=== PATIENT | female | born 1960 | race Caucasian/White ===

== ENCOUNTER 2019-05-15 23:15 | Emergency (ER) | payer BC ==
[2019-05-15] MEDS ORDERED: KETOROLAC 60 MG/2 ML VIAL IM STA (23:54)
[2019-05-15] MEDS ORDERED: ORPHENADRINE 30 MG/ML 2 ML VIAL IM STA (23:54)
[2019-05-16] MEDS ORDERED: ACET/COD 300 MG/30 MG STARTER PACK 6 TAB BTL PO STA (01:16)
--- NOTE | 2019-05-16 01:18 | ED ---
Lower Extremity Injury HPI - General Chief Complaint: Extremity Injury, Lower Stated Complaint: Rt Knee Injury Time Seen by Provider: 05/15/19 23:45 Source: patient, RN notes reviewed, old records reviewed Mode of arrival: wheelchair Limitations: no limitations - History of Present Illness Initial Comments: Patient is a 58 year old female with R knee pain and locking. She reports that she has had R knee locking sensation for many years and can get it to fully extend aftermanipulation. At this time patient does not see ortho. Patient has had her knee locked since getting out of a kayak this evening. She deines peripheral paresthesia. She reports a shooting pain from knee to hip. - Related Data Home Medications Medication Instructions Recorded Confirmed Baclofen [Lioresal] 10 mg PO DAILY 05/15/19 05/15/19 Cholecalciferol [Vitamin D3 (25 1,000 unit PO DAILY 05/15/19 05/15/19 Mcg = 1000 Iu)] Diclofenac Sodium [Voltaren] 75 mg PO BID 05/15/19 05/15/19 Fluticasone Nasal [place] [Flonase 1 spray EA NOSTRIL DAILY 05/15/19 05/15/19 Nasal [place]] Pregabalin [Lyrica] 150 mg PO BID 05/15/19 05/15/19 metFORMIN HCL [Glucophage] 500 mg PO BID 05/15/19 05/15/19 Allergies Allergy/AdvReac Type Severity Reaction Status Date / Time doxycycline AdvReac skin Verified 05/15/19 23:36 peeling/ light sensitivity Review of Systems ROS Statement: Those systems with pertinent positive or pertinent negative responses have been documented in the HPI. ROS Other: All systems not noted in ROS Statement are negative. Past Medical History Past Medical History: Diabetes Mellitus, Osteoarthritis (OA) Additional Past Medical History / Comment(s): fibromyalgia, History of Any Multi-Drug Resistant Organisms: None Reported Additional Past Surgical History / Comment(s): L4,L5 fusion, left knee meniscus repair, bilat ductial excision to breasts. Past Psychological History: No Psychological Hx Reported Smoking Status: Former smoker Past Alcohol Use History: Occasional Past Drug Use History: None Reported General Exam - General Exam Comments Initial Comments: 58 year old female, no distress. Limitations: no limitations General appearance: alert, in no apparent distress Head exam: Present: atraumatic, normocephalic, normal inspection Eye exam: Present: normal appearance, PERRL, EOMI. Absent: scleral icterus, conjunctival injection, periorbital swelling ENT exam: Present: normal exam, mucous membranes moist Neck exam: Present: normal inspection. Absent: tenderness, meningismus, lymphadenopathy Respiratory exam: Present: normal lung sounds bilaterally. Absent: respiratory distress, wheezes, rales, rhonchi, stridor Cardiovascular Exam: Present: regular rate, normal rhythm, normal heart sounds. Absent: systolic murmur, diastolic murmur, rubs, gallop, clicks Right Knee exam: Present: tenderness, swelling (over medial meniscus. ). Absent: normal inspection Lower Leg exam: Present: normal inspection, full ROM Ankle exam: Present: normal inspection, full ROM Foot/Toe exam: Present: normal inspection Neurovascular tendon exam: Present: no vascular compromise Neurological exam: Present: alert, oriented X3, CN II-XII intact Psychiatric exam: Present: normal affect, normal mood Skin exam: Present: warm, dry, intact, normal color. Absent: rash Course Vital Signs 05/15/19 05/16/19 05/16/19 23:22 00:24 01:44 Temperature 98.3 F 97.6 F Pulse Rate 71 68 76 Respiratory 18 18 16 Rate Blood Pressure 134/81 122/55 138/86 O2 Sat by Pulse 96 96 100 Oximetry Medical Decision Making - Medical Decision Making Patient is a 58 year old female with R knee locking sensation after getting out of kayak. She is neurovacularly intact. Patient cannot fully extend the knee. She is able to extend besides 20 degrees. Patient likely has mensicus tear and related to locking. After attempting to manipulate hte knee, patient is still unable to fully extend. Patient advised to follow up with ortho. Patient placed in knee immobilizer. Disposition Clinical Impression: Locking of right knee Disposition: HOME SELF-CARE Condition: Good Instructions (If sedation given, give patient instructions): Meniscus Tear (ED) Additional Instructions: Patient has a follow-up with transportation maintenance specialist. Ambulate with crutches and wear knee immobilizer. Return to emergency department if any alarming signs or symptoms occur. Is patient prescribed a controlled substance at d/c from ED?: No Referrals: Javier Patel DO [Primary Care Provider] - 1-2 days Emil Arevalo PAC [PHYSICIAN RETURN TO FACTORY CLERK] - 1-2 days Time of Disposition: 01:17
[2019-05-16 01:46] VITALS: BP 138/86; PULSE 76; RESP 16; TEMP 97.6
--- NOTE | 2019-05-16 07:38 | XR ---
Right knee HISTORY: Pain, unable to extend knee 3 views of the right knee The knee is flexed. No evident joint effusion. Bone mineralization is maintained. No fracture or disl ocation is evident. IMPRESSION: Knee is flexed, no other acute abnormality is evident
== END 2019-05-16 01:40 | disposition home or self-care (01) ==
LOC: EC 23:15
DX: M23.91 Unspecified internal derangement of right knee (principal); E11.9 Type 2 diabetes mellitus without complications; M19.90 Unspecified osteoarthritis, unspecified site; M79.7 Fibromyalgia; Z87.891 Personal history of nicotine dependence; Z79.1 Long term (current) use of non-steroidal anti-inflammatories (NSAID); Z79.84 Long term (current) use of oral hypoglycemic drugs; Z79.899 Other long term (current) drug therapy; Z88.1 Allergy status to other antibiotic agents
CPT/HCPCS: 73562; 99284; 96372 ×2; J2360; J1885

== ENCOUNTER → 2019-12-09 | Outpatient (CLI) | payer BC ==
--- NOTE | 2019-12-12 09:29 | MM ---
Reason for exam: screening (asymptomatic). History: Family history of breast cancer in sister at age 66 and breast cancer in maternal grandmother. Benign core biopsy of the left breast, 2012. MG pre op needle loc LT, 2001. MG pre op needle loc RT, 2001. Physical Findings: A clinical breast exam by your physician is recommended on an annual basis and results should be correlated with mammographic findings. MG Screening Mammo w CAD Bilateral CC and MLO view(s) were taken. The breast tissue is heterogeneously dense. This may lower the sensitivity of mammography. There are grouped left upper outer quadrant calcifications with adjacent biopsy marker. Other stable left calcifications are also seen. No suspicious abnormality. No significant changes when compared with prior studies. ASSESSMENT: Benign, BI-RAD 2 RECOMMENDATION: Routine screening mammogram of both breasts in 1 year.
== END | disposition home or self-care (01) ==
LOC: RADMAMWWP 07:36
PROVIDERS: ATTEND Obstetrics & Gynecology Obstetrics
DX: Z12.31 Encounter for screening mammogram for malignant neoplasm of breast (principal); Z80.3 Family history of malignant neoplasm of breast
CPT/HCPCS: 77067

== ENCOUNTER → 2020-07-27 | Outpatient (CLI) | payer BC ==
--- NOTE | 2020-07-27 16:33 | XR ---
EXAMINATION TYPE: XR cervical spine comp DATE OF EXAM: 07/27/2020 TECHNIQUE: Frontal, lateral, oblique, and open mouth view of the cervical spine are obtained. HISTORY: [id number] CERVICALGIA COMPARISON: None FINDINGS: The cervical spine is visualized in its entirety from C1 thru the top of T1 level. Normal alignment without evidence of acute fracture or dislocation. The pre-vertebral soft tissue appears wi thin normal limits. There is disc space narrowing with osteophytosis at C4-C5, C5-C6, and C6-C7. Unco vertebral hypertrophy and facet arthropathy with varying degrees of neural foraminal bony encroachmen t. The atlantoaxial relationship and base of the dens is within normal limits on the open mouth view. IMPRESSION: 1. No acute fracture or dislocation is seen in the cervical spine. 2. Degenerative changes with varying degrees of neural foraminal bony encroachment bilaterally.
== END | disposition home or self-care (01) ==
LOC: RADXRYALE 09:39
PROVIDERS: ATTEND Physician Assistant
DX: M47.892 Other spondylosis, cervical region (principal)
CPT/HCPCS: 72050

== ENCOUNTER → 2020-08-15 | Outpatient (CLI) | payer BC | END | disposition home or self-care (01) | LOC: LABWHC1 08:53 | PROVIDERS: ATTEND Family Medicine | DX: Z20.828 Contact with and (suspected) exposure to other viral communicable diseases (principal) | CPT/HCPCS: U0003; C9803 ==

== ENCOUNTER → 2020-09-03 | Outpatient (CLI) | payer BC ==
--- NOTE | 2020-09-03 19:01 | MR ---
EXAMINATION TYPE: MR cervical spine wo con DATE OF EXAM: 09/03/2020 COMPARISON: Plain film 07/27/2020 HISTORY: Hand numbness, arm and neck pain, neck spasms TECHNIQUE: Multiplanar, multisequence images of the cervical spine were acquired. C2-C3: No evidence for degenerative disc disease. No disc bulge/herniation or protrusion. No Canal stenosis. Foramina are patent bilaterally. C3-C4: Posterior extension of endplate disc complex causes some anterior mass effect on the thecal sa c, no significant spinal stenosis. Uncovertebral joint hypertrophy and facet arthropathy results in f oraminal encroachment right greater than left. C4-C5: Posterior extension endplate disc complex results in moderate central stenosis., Is likely con tact with the anterior cervical cord. Bilateral foraminal encroachment is present. C5-C6: Mild to moderate spinal stenosis is present, there is posterior extension endplate disc comple x likely contact the anterior cervical cord. There is bilateral foraminal encroachment. C6-C7: Posterior extension endplate disc complex causes anterior mass effect on the thecal sac. Michelle inal encroachment is present left greater than right. C7-T1: No evidence for degenerative disc disease. No disc bulge/herniation or protrusion. No Canal stenosis. Foramina are patent bilaterally. Cervical segments are intact. There is normal alignment. Cervical spinal cord is of normal signal. Craniovertebral junction relationships are within normal limits. There is multilevel spondylosis. L oss of disc height signal present especially C4-5, C5-6 and C6-7, there is associated endplate discog enic marrow signal change. IMPRESSION: Degenerative disc disease, multilevel foraminal encroachment. Spinal stenosis is greatest at C4-5, C5 -6
== END | disposition home or self-care (01) ==
LOC: RADMRIMAIN 17:03
PROVIDERS: ATTEND Physician Assistant
DX: M48.02 Spinal stenosis, cervical region (principal); M50.10 Cervical disc disorder with radiculopathy, unspecified cervical region
CPT/HCPCS: 72141

== ENCOUNTER → 2021-01-03 | Outpatient (CLI) | payer BC ==
--- NOTE | 2021-01-03 10:52 | CT ---
EXAMINATION TYPE: CT chest wo con DATE OF EXAM: 01/03/2021 COMPARISON: None HISTORY: 9-fncc-hfj-year-old female Shortness of breath, chest pains, fatigue TECHNIQUE: Contiguous axial scanning of the chest without IV contrast. Coronal and sagittal reconstru ctions performed. CT DLP: 524 mGycm Automated exposure control for dose reduction was used. FINDINGS: Heart normal size without pericardial effusion. Aorta normal caliber with bovine configuration and variant direct takeoff of the left vertebral arter y directly from the aortic arch. Suspect a microclip in the superior left breast from prior biopsy. Scattered prominent lymph nodes are present in the mediastinum measuring up to 9 mm. However, precari nal lymph node is mildly enlarged at 1.4 cm. Mild to moderate generalized emphysematous change and some strandy scarring or atelectasis in the low er lungs. No consolidation or pleural effusion. Tiny hiatal hernia suggested. Visualized upper abdomen shows low-attenuation of the hepatic parenchyma compatible with fatty infilt ration. Bones: Some asymmetric mild degenerative change of the left sternoclavicular joint. IMPRESSION: 1. GENERALIZED EMPHYSEMATOUS CHANGE. CORRELATE FOR A HISTORY OF SMOKING AND UNDERLYING COPD. 2. A MILDLY ENLARGED PRECARINAL LYMPH NODE AT 1.4 CM SHORT AXIS. PROBABLY REACTIVE/POST INFLAMMATORY. SIX-MONTH FOLLOW-UP CT TO REASSESS. 3. TINY HIATAL HERNIA AND HEPATIC STEATOSIS.
== END ==
LOC: RADCTMAIN 07:56
PROVIDERS: ATTEND Family Medicine
DX: R06.02 Shortness of breath (principal); R07.1 Chest pain on breathing; R53.83 Other fatigue; K76.0 Fatty (change of) liver, not elsewhere classified; K44.9 Diaphragmatic hernia without obstruction or gangrene; J43.8 Other emphysema
CPT/HCPCS: 71250

== ENCOUNTER → 2021-07-26 | Outpatient (CLI) | payer BC ==
--- NOTE | 2021-07-26 16:28 | CT ---
EXAMINATION TYPE: CT chest w con DATE OF EXAM: 07/26/2021 COMPARISON: Chest CT January 03, 2021 HISTORY: Pt hx of chronic cough/sickness x3 months, not Covid. Follow-up CT DLP: 434.40 mGycm. Automated Exposure Control for Dose Reduction was Utilized. TECHNIQUE: CT scan of the thorax is performed following with IV Contrast, patient injected with 100 mL of Isovue 300. FINDINGS: LUNGS: Mild underlying emphysematous change is redemonstrated. No new suspicious nodules or masses. N o pleural effusion or pneumothorax seen bilaterally. No focal consolidation. Tracheobronchial tree is patent. MEDIASTINUM: There are no new greater than 1 cm hilar or mediastinal lymph nodes. There is 1.6 x 0.9 cm pericarinal lymph node axial image 22 less prominent from prior. No cardiomegaly or pericardial e ffusion is seen. OTHER: Visualized liver redemonstrated hypodense consistent with diffuse fatty infiltration. IMPRESSION: Mild emphysematous change without acute pulmonary process
== END | disposition home or self-care (01) ==
LOC: RADCTMAIN 14:07
PROVIDERS: ATTEND Internal Medicine Critical Care Medicine
DX: J43.9 Emphysema, unspecified (principal)
CPT/HCPCS: 82565; 84520; 71260; 36415; Q9967

== ENCOUNTER → 2021-08-27 | Outpatient (CLI) | payer BC ==
--- NOTE | 2021-08-27 11:42 | MR ---
MR right hip without contrast HISTORY: Right hip pain, limited movement Multiplanar multisequence imaging obtained to the pelvis with small [id number] images to the right hip There is no plain film supplied for correlation. Labrum not as well-defined due to lack of intra-edwin cular contrast, 4 [id number] ratio. Question some abnormal increased intrinsic signal within the labrum, difficult to exclude a labral tear. At the level of the insertion of the gluteus tendons at the greater trochanter, there is increased signal on T2-weighted imaging. The gluteus medius tendon s hows at the level peripherally near the iliotibial band a focus of increased signal which is asymmetr ic, coronal images #17 and 18 on T2-weighted sequences. Bone marrow signal is maintained. No definite chondromalacia. No sizable joint effusion. There are postop changes are noted at the lower lumbar spine, susceptibility artifact is present over the degenerative disc changes. Urinary bladder is within normal limits. No free fluid or pelvic omid opathy evident. Uterus appears atrophic. Some diverticular changes are associated with the colon IMPRESSION: Suspected small area of muscle strain or partial tear of the gluteus medius as described. Additional findings
== END | disposition home or self-care (01) ==
LOC: RADMRIMAIN 08:18
PROVIDERS: ATTEND Family Medicine
DX: G61.82 Multifocal motor neuropathy (principal); M25.551 Pain in right hip

== ENCOUNTER → 2021-12-13 | Outpatient (CLI) | payer BC ==
--- NOTE | 2021-12-13 13:08 | CT ---
EXAMINATION TYPE: CT angio chest DATE OF EXAM: 12/13/2021 COMPARISON: 07/26/2021 HISTORY: Elevated blood pressure and heart rate, decreased oxygenation CT DLP: 406.1 mGycm CONTRAST: CT chest with contrast and 3D reconstruction with MIP imaging is performed with IV Contrast, patient injected with 100, wasted 34 mL of Isovue 370. Contrast-enhanced CT of the chest was performed through the course of the pulmonary arteries with yi g and mediastinal window settings submitted. 3D reconstruction with MIP imaging was also performed. PULMONARY ARTERIES: The pulmonary arteries and their major tributaries are patent. I do not see rosendo dence for sizable filling defect to suggest pulmonary embolic process. LUNGS: The lungs are clear and free of infiltrate. No evidence for atelectasis. No pulmonary nodule or mass is detected. No pleural effusion. MEDIASTINUM: Thoracic aorta is of normal caliber,however, evaluation is limited given timing of the contrast bolus. If there is concern for thoracic aortic pathology consider ESSENCE. Correlate clinicall y . The heart is not enlarged. No evidence for mediastinal mass. No mediastinal lymph nodes greater than 1cm. HILAR STRUCTURES: No evidence for mass. No hilar lymph nodes greater than 1 cm. UPPER ABDOMEN: No significant abnormality is seen. IMPRESSION: 1. No evidence for Pulmonary embolism at this time.
== END | disposition home or self-care (01) ==
LOC: RADCTMAIN 11:35
PROVIDERS: ATTEND Internal Medicine Critical Care Medicine
DX: R06.09 Other forms of dyspnea (principal)
CPT/HCPCS: 82565; 84520; 71275; 36415; Q9967

== ENCOUNTER → 2022-01-22 | Outpatient (CLI) | payer BC ==
--- NOTE | 2022-01-22 13:00 | ECHOF ---
Referral Reason:R06.02 SOB MEASUREMENTS -------- HEIGHT: 165.1 cm WEIGHT: 86.2 kg BP: IVSd: 1.4 cm (0.6 - 1.1) LVIDd: 3.3 cm (3.9 - 5.3) LVPWd: 1.4 cm (0.6 - 1.1) IVSs: 1.8 cm LVIDs: 2.2 cm LVPWs: 1.7 cm LAESV Index (A-L): 22.54 ml/m Ao Diam: 3.1 cm (2.0 - 3.7) AV Cusp: 1.9 cm (1.5 - 2.6) LA Diam: 2.5 cm (2.7 - 3.8) MV EXCURSION: 17.007 mm (> 18.000) MV EF SLOPE: 85 mm/s (70 - 150) EPSS: 0.6 cm MV E Chris: 0.62 m/s MV DecT: 236 ms MV A Chris: 0.83 m/s MV E/A Ratio: 0.75 RAP: 5.00 mmHg RVSP: 12.99 mmHg FINDINGS -------- This was a technically good study. The left ventricular size is normal. There is moderate concentric left ventricular hypertrophy. O verall left ventricular systolic function is normal with, an EF between 55 - 60 %. The diastolic fi lling pattern is normal for the age of the patient 12.30. The right ventricle is normal in size. The left atrial size is normal. The right atrial size is normal. The aortic valve is trileaflet and appears structurally normal. The mitral valve is normal. There is trace mitral regurgitation. The tricuspid valve appears structurally normal. Trace tricuspid regurgitation present. Right gissel tricular systolic pressure is normal at < 35 mmHg. There is no pulmonic regurgitation present. The aortic root size is normal. Normal inferior vena cava with normal inspiratory collapse consistent with estimated right atrial pre ssure of 5 mmHg. There is no pericardial effusion. CONCLUSIONS -------- 1. The left ventricular size is normal. 2. There is moderate concentric left ventricular hypertrophy. 3. Overall left ventricular systolic function is normal with, an EF between 55 - 60 %. 4. The diastolic filling pattern is normal for the age of the patient 12.30 5. There is trace mitral regurgitation. 6. Trace tricuspid regurgitation present. 7. There is no pericardial effusion. MEAL GRINDER TENDER: Mallory Spencer RDCS
== END | disposition home or self-care (01) ==
LOC: RADECHMAIN 11:52
PROVIDERS: ATTEND Family Medicine
DX: I51.7 Cardiomegaly (principal); I34.0 Nonrheumatic mitral (valve) insufficiency; R06.02 Shortness of breath; R53.83 Other fatigue
CPT/HCPCS: 93306

== ENCOUNTER → 2022-03-27 | Outpatient (CLI) | payer BC | END | disposition home or self-care (01) | LOC: RADMAMWWP 09:52 | PROVIDERS: ATTEND Family Medicine | DX: N63.0 Unspecified lump in unspecified breast (principal) | CPT/HCPCS: 77062; 77066 ==